=== PATIENT | female | born 1985 | race Caucasian/White ===

== ENCOUNTER 2018-08-27 16:43 | Emergency (ER) | payer MEDICAID ==
[2018-08-27 16:49] VITALS: BP 140/92
[2018-08-27] MEDS ORDERED: ACETAMINOPHEN 325 MG TAB PO ONE (17:04)
--- NOTE | 2018-08-27 17:05 | EDPHY ---
H & P Time Seen by Provider: 08/27/18 16:52 HPI/ROS: CHIEF COMPLAINT: Cough fever sore throat HISTORY OF PRESENT ILLNESS: Patient is homeless and attributes her symptoms to having slept outside in the rain for the last 2 days. She has a cough fever and a sore throat for the last 2 days. No difficulty breathing or swallowing. She says she has associated feeling very hungry and being more [place] than usual. Denies leg swelling or hemoptysis. Denies earache or headache. Denies tongue swelling or dental symptoms. Denies sputum production or chest pain. REVIEW OF SYSTEMS: Eye: no change in vision ENT: HPI Cardiac: no chest pain or syncope Pulmonary: HPI Abdomen: no vomiting, diarrhea, abdominal pain Musculoskeletal: no back pain Skin: no rash Neuro: no headache Constitutional: HPI : no urinary symptoms A comprehensive 10 point review of systems is otherwise negative aside from elements mentioned in the history of present illness. PAST MEDICAL HISTORY: Bipolar disorder Social history: Homeless, no IV drug abuse General Appearance: Alert and conversant, cooperative. Eyes: No scleral icterus. ENT, Mouth: Normal mucous membranes. Tympanic membranes normal, pharynx normal , uvula midline, no tonsillar exudate or swelling. No stridor or drooling. Respiratory: Normal respiratory effort, breath sounds equal, lungs are clear to auscultation. No wheezing rhonchi or rales. Cardiovascular: Regular rate and rhythm. Gastrointestinal: Abdomen is soft and non tender. Neurological: Alert, face symmetric, normal motor and sensory in extremities. Skin: Warm and dry, no rashes. Musculoskeletal: No peripheral edema. Neck supple normal range of motion. Psychiatric: Not agitated. Admits to depression but denies suicidal ideation or hallucinations. Emergency Department course/MDM: Patient presents with URI symptoms with cough and sore throat and subjective fevers but has normal vital signs and no evidence of serious bacterial illness on examination. She has bipolar disorder and admits to depression but does not appear to meet criteria for mental health hold does not appear to be a grave danger to herself or others, or gravely disabled at this time. Tylenol, symptomatic treatment discussed, resource list given for homeless. Smoking Status: Current some day smoker Constitutional: Initial Vital Signs Temperature (C) 37 C 08/27/18 16:47 Heart Rate 71 08/27/18 16:47 Respiratory Rate 18 08/27/18 16:47 Blood Pressure 140/92 H 08/27/18 16:47 O2 Sat (%) 95 08/27/18 16:47 O2 Delivery Mode Room Air Allergies/Adverse Reactions: No Known Allergies Allergy (Unverified 08/27/18 16:46) Home Medications: Medication Instructions Recorded NK [No Known Home Meds] 08/27/18 Medical Decision Making - Data Points Medications Given: Discontinued Medications Acetaminophen (Tylenol) 650 mg PO EDNOW ONE Stop: 08/27/18 17:05 Last Admin: 08/27/18 17:08 Dose: 650 mg Departure - Departure Disposition: Home, Routine, Self-Care Clinical Impression: Chest cold Condition: Good Instructions: Upper Respiratory Infection (ED) Referrals: [facility],. [Clinic] - As per Instructions
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
== END 2018-08-27 17:12 | disposition home or self-care (01) ==
DX: J06.9 Acute upper respiratory infection, unspecified (principal); F17.200 Nicotine dependence, unspecified, uncomplicated; Z59.0 Homelessness